=== PATIENT | female | born 1985 | race Caucasian/White ===

== ENCOUNTER 2019-09-19 23:16 | Emergency (ER) | payer BC ==
[~2019-09-19] VITALS: Ht 160 cm; Wt 59.0 kg
--- NOTE | 2019-09-19 23:34 | NUR ---
PT PRESENTED TO THE ER WITH A C/O LOWER/SUPRAPUBIC ABD PAIN (7/10) THAT RADIATES TO A SHARP INTERMITTENT PAIN IN THE EPIGASTRIC AREA. PT WAS ABLE TO GIVE A URINE SAMPLE AND AMBULATED TO ER 2 WITH A STEADY GAIT, BUT GUARDING HER ABD. PT DENIES PAIN WITH PALPATION. PT STATED THAT SHE FELT BLOATED AROUND 10AM AND WAS HAVING ABD PAIN WITH DIARRHEA AROUND 1300. PT STATED THAT SHE HAS BEEN HAVING ON AND OFF CONSTIPATION AND DIARRHEA SINCE 1300. PT WAS ABLE TO EAT A BAGEL THIS MORNING THIS MORNING AND HAD DISCOMFORT AFTER EATING TRI TIP AND POTATOES THIS AFTERNOON. PT HAS HAD AN EPISODE OF VOMITTING IN THE AFTERNOON. PT WAS PLACED ON THE MONITOR AND CONTINUOUS POX. RESP ARE EVEN AND UNLABORED.
[2019-09-20] MEDS ORDERED: DICYCLOMINE HCL 10 MG CAPSULE PO ONE ×2 (00:06→00:30)
[2019-09-20] MEDS ORDERED: MORPHINE SULFATE INJ 4 MG/ML DISP.SYRIN ONE ×2 (00:06→02:09)
[2019-09-20 00:22] LABS: BASOPHILS % (AUTO) 0.2 % (0.0-2.0); EOSINOPHILS % (AUTO) 0.7 % (0.0-6.0); HEMATOCRIT 44 % (33-45); HEMOGLOBIN 14.4 g/dL (11.5-14.8); LYMPHOCYTES # (AUTO) 0.7 /CMM (0.8-4.8); LYMPHOCYTES % (AUTO) 10.6 % (20.0-44.0); MEAN CORPUSCULAR HGB CONC 33 g/dl (31.0-36.0); MEAN CORPUSCULAR VOLUME 95 fL (82-100); MONOCYTES # (AUTO) 0.3 /CMM (0.1-1.30); MONOCYTES % (AUTO) 5.2 % (2.0-12.0); NEUTROPHILS # (AUTO) 5.6 /CMM (1.8-8.9); NEUTROPHILS % (AUTO) 83.3 % (43.0-81.0); PLATELET COUNT (AUTO) 184 /CMM (150-450); RED BLOOD CELL COUNT(AUTO) 4.59 MIL/uL (4.0-5.2); WHITE BLOOD COUNT (AUTO) 6.8 K/uL (4.3-11.0)
[2019-09-20 00:24] LABS: APPEARANCE,URINE CLEAR (CLEAR); BILIRUBIN,URINE NEGATIVE (NEGATIVE); BLOOD, URINE NEGATIVE Ery/uL (NEGATIVE); COLOR,URINE YELLOW (YELLOW); KETONES,URINE NEGATIVE (NEGATIVE); LEUKOCYTE ESTERASE ,URINE TRACE (NEGATIVE); NITRITE, URINE NEGATIVE (NEGATIVE); PH,URINE 7.5 (5.0-8.0); PROTEIN,URINE NEGATIVE (NEGATIVE); UGLUCOSE NEGATIVE (NEGATIVE); UROBILINOGEN,URINE 0.2 EU/dL (0.2)
[2019-09-20 00:28] LABS: BACTERIA,URINE Few /HPF (None Seen); RBC,URINE 0-2 /HPF (0-2); SQUAMOUS EPITHELIAL CELL,UR Moderate /HPF (None Seen)
[2019-09-20] MEDS ORDERED: MORPHINE SULFATE INJ 2 MG/ML DISP.SYRIN IV ONE ×2 (00:30→02:00)
[2019-09-20] MEDS ORDERED: IV NS 0.9% 1,000 ML BAG IV ONE (00:30)
[2019-09-20 00:43] LABS: ALBUMIN 3.3 g/dL (3.4-5.0); BILIRUBIN,DIRECT 0.1 mg/dL (0.0-0.2); BILIRUBIN,TOTAL 0.6 mg/dL (0.2-1.0); CALCIUM, SERUM 8.7 mg/dL (8.5-10.1); CREATININE 0.9 mg/dL (0.6-1.3); POTASSIUM 3.4 mmol/L (3.5-5.1); TOTAL PROTEIN, SERUM 6.7 g/dL (6.4-8.2)
--- NOTE | 2019-09-20 01:08 | NUR ---
PT IS STILL COMPLAINING OF ABD PAIN.
[2019-09-20] MEDS ORDERED: KETOROLAC TROMETHAMINE INJ 30 MG/ML VIAL IV ONE (02:00)
[2019-09-20] MEDS ORDERED: IOHEXOL-300 100 ML VIAL IV ONE (02:04)
[2019-09-20] MEDS ORDERED: CT SWABBABLE VALVE TRANS SET 1 EA INFUS.SET MC ONE (02:04)
[2019-09-20] MEDS ORDERED: IV NS 0.9% 250 ML IV ONE (02:04)
--- NOTE | 2019-09-20 02:07 | NUR ---
PT LEFT FOR CT VIA GURNEY.
[2019-09-20] MEDS ORDERED: KETOROLAC TROMETHAMINE 15 MG/ML VIAL ONE (02:09)
--- NOTE | 2019-09-20 02:13 | NUR ---
PT REPORTED ALLERGY TO SEA FOOD WITH SWOLLEN TONGUE REACTION. STATED HAS NEVER RECEIVED CONTRAST BEFORE . DR MASON MADE AWARE W/ A NEW ORDER TO PERFORM THE CT SCAN WITHOUT CONTRAST.
--- NOTE | 2019-09-20 02:17 | NUR ---
PT REC'D MEDICATION ORDERED.
--- NOTE | 2019-09-20 02:22 | NUR ---
PT RETURNED FROM CT.
--- NOTE | 2019-09-20 02:59 | NUR ---
CT ABD RESULTS RECEIVED THRU FAX. SUBMITTED TO DR MASON,
--- NOTE | 2019-09-20 03:28 | NUR ---
PT IS MEDICALLY STABLE FOR D/C. IV removed. Catheter intact and site benign. Pressure and 4x4 applied to site. No bleeding noted.Patient discharged to home in stable condition. Rx and Written and verbal after care instructions given. Patient verbalizes understanding of instruction. Pt walked out w/ steady gaits and lauribad provided the ride back home.
[2019-09-20 03:30] VITALS: BP 101/63
== END 2019-09-20 03:34 | disposition home or self-care (01) ==
LOC: ER 23:20
DX: R10.30 Lower abdominal pain, unspecified (principal); R19.7 Diarrhea, unspecified
CPT/HCPCS: 36415; 74176; 80048; 80076; 81001; 84703; 85025; 96361; 96374; 96375; 96376; 99285; J1885; J2270 ×2; J7030; J7050; Q9967; 81000-TC; 87086-TC